=== PATIENT | female | born 2000 | race Caucasian/White ===

== ENCOUNTER 2024-12-30 14:25 | Outpatient (CLI) | payer OTHER, SELFPAY | END 2024-12-30 14:26 | disposition home or self-care (01) | LOC: NFLDREF 01-05 00:24 | PROVIDERS: Visit Provider Physician Assistant | DX: R30.0 Dysuria (principal) | CPT/HCPCS: 87086 ==

== ENCOUNTER 2025-09-20 15:49 | Emergency (ER) | payer OTHER, SELFPAY ==
--- OUTSIDE RECORDS SUMMARY | 2025-09-20 15:52 | XMS_ITS | Encounter Summary ---
Author Organization [facility] Address [address] [place] [address] Care Team Providers Care Cardiac Specialist Name Role Phone Pinky Jacob, P.A.-C. Primary Care Pro vider Reason for Visit * ReasonCommentsMed Refill Encounter Details DateTypeDepartmentCare Team (Latest Contact Info)Kkvcnvgeicn90/12/2025Refill Department of Family Medicine, [facility], in [place], [place] [address] [place] [address] Pinky Jacob MPAS, P.A.-C. [address] [place] [phone] Med Refill Social History Tobacco UseTypesPacks/DayYears UsedDateSmoking Tobacco: NeverSmokeless Tobacco: NeverAlcohol UseStandard Drinks/WeekCommentsNot Currently0 (1 standard drink = 0.6 oz pure alcohol)Humiliation, Afraid, Rape, and Kick questionnaireAnswerDate RecordedWithin the last year, have you been afraid of your partner or ex-partner?No06/10/2024Within the last year, have you been humiliated or emotionally abused in other ways by your partner or ex-partner?No06/10/2024 Within the last year, have you been kicked, hit, slapped, or otherwise physically hurt by your partner or ex-partner?No06/10/2024Within the last year, have you been raped or forced to have any kind of sexual activity by your part ner or ex-partner?No06/10/2024Hunger Vital SignAnswerDate RecordedWithin the past 12 months, you worried that your food would run out before you got the money to buymore.Never true06/16/2025Within the past 12 months, the food you bought just didn't last and you didn't have money to get more.Never true 06/16/2025PRAPARE - TransportationAnswerDate RecordedIn the past 12 months, has lack of transportation kept you from medical appointments or from getting medications?No06/16/2025In the past 12 months, has lack of transportation kept you from meetings, work, or from getting things needed for daily living?No 06/16/2025HC UtilitiesAnswerDate RecordedIn the past 12 months has the [employer] gas, oil, or water [employer] threatened to shut off services in your home?No06/16/2025Postpartum DepressionAnswerDate RecordedPHQ-9 Total Score (max 27)Housing StabilityAnswerDate RecordedWhat is your living situation today?I have a steady place to live06/16/2025EducationAnswerDate RecordedWhat is the highest level of school you have completed or the highest degree you have received?Some college, no [id number] and Gender InformationValueDate RecordedSex Assigned at MkfemYxkkwe31/27/2022 3:50 PM CDT Legal SxcGwqeic58/03/2017 4:28 AM CSTGender CkbeajzcMlzvge43/27/2022 3:50 PM CDT Sexual AcefpfwadrdJxzxxawo04/09/2022 1:02 PM CSTdocumented as of this encounter Plan of Treatment Not on file documented as of this encounter Visit Diagnoses Not on filedocumented in this encounter Additional Health Concerns AssessmentNoted TimePHQ-9 Depression Total Score: 6:38 AM DENTAL LABORATORY WORKER documented as of this encounter Care Teams Team MemberRelationshipSpecialtyStart DateEnd Date Pinky Jacob MPAS, P.A.-C. [address] [place], [place] [address]hernan DIXONJOEL COELLO [phone] PCP - GeneralInternal Jwmxoxlq96/18/22documented as of this encounter
--- OUTSIDE RECORDS SUMMARY | 2025-09-20 15:52 | XMS_ITS | Encounter Summary ---
Author Organization [facility] Address [address] [place] [address] Care Team Providers Care Commissioning Agent Name Role Phone Pinky Jacob P.A.-C. Primary Care Pro vider Reason for Visit * ReasonOnset DateCommentsMed Ilywyv0009/08/2025 Encounter Details DateTypeDepartmentCare Team (Latest Contact Info)Oelcvrtbgfl04/11/2025Refill Department of Family Medicine, [facility], in [place], [place] [address] [place] [phone] Alondra Martell P.A.-C. [address], [place] [address] Med Refill Social History Tobacco UseTypesPacks/DayYears UsedDateSmoking [...] RecordedIn the past 12 months has the [employer], gas, oil, or water [employer] threatened to shut off services in your home?No06/16/2025Postpartum DepressionAnswerDate RecordedPHQ-9 Total Score (max 27)Housing StabilityAnswerDate RecordedWhat is your living situation today?I have a steady place to live06/16/2025EducationAnswerDate RecordedWhat is the highest level of school you have completed or the highest degree you have received?Some college, no [id number] and Gender InformationValueDate RecordedSex Assigned at EazwaJcxgmc90/27/2022 3:50 PM CDT Legal BjkAkwvlp13/03/2017 4:28 AM CSTGender WxajlbtoJawyoh52/27/2022 3:50 PM CDT Sexual YdbsmbmuvnySatsomrq82/09/2022 1:02 PM CSTdocumented as of this encounter Miscellaneous Notes * Telephone Encounter - Delilah Juarez M - 09/12/2025 10:33 AM CST Duplicate-being addressed in another encounter GER IMAGE documented in this encounter Plan of Treatment Not on file documented as of this encounter Visit Diagnoses Not on filedocumented in this encounter Additional Health Concerns AssessmentNoted TimePHQ-9 Depression Total Score: 6:38 AM MANAGER IMAGE documented as of this encounter Care Teams Team MemberRelationshipSpecialtyStart DateEnd Date Pinky Jacob MPAS, P.A.-C. [address] [place] [address] [place] [phone] PCP - GeneralInternal Umvwnpmd06/18/22documented as of this encounter
--- OUTSIDE RECORDS SUMMARY | 2025-09-20 15:52 | XMS_ITS | Clinical Summary ---
Author Organization [facility] Address [address] [place] [address] Care Team Providers Care Laboratory Chemical Assistant Name Role Phone [facility], [facility] [place] [facility] Pro vider Allergies No known active allergies Medications MedicationSigDispense QuantityRefillsLast FilledStart DateEnd DateStatus metFORMIN (GLUCOPHAGE XR) 500 mg Extended-Release tablet Take 500 mg by mouth once daily with evening meal.05/06/2022ctive ubrogepant (UBRELVY ORAL) Take by mouth.Active MAGIC MOUTHWASH 1:1:1 DIPHEN/MAALOX/LIDO (AMB SPECIAL MIX) Indications:Sore throatSwish and swallow 5-10 mL by mouth every 4 hours if needed (sore throat). 240 mL 05/11/2023ctive albuterol HFA (PRO-AIR; VENTOLIN; PROVENTIL) 90 mcg/actuation inhaler Indications:Difficulty breathingInhale 2 Puffs by mouth every 4 hours if needed for Shortness Of Breath. 1 Each 05/11/2023ctive miscellaneous medical supply (Blood Pressure Cuff) misc Indications:Elevated blood pressure reading in office with diagnosis of hypertensionAs directed. 1 Each 06/05/2024ctive metoclopramide HCl (REGLAN) 10 mg tablet Indications:Nausea and vomiting, unspecified vomiting typeTake 1 Tablet (10 mg) by mouth every 6 hours if needed for Nausea/Vomiting. 12 Tablet 06/05/2024ctive ondansetron (ZOFRAN ODT) 4 mg disintegrating tablet Indications:Nausea and vomiting, unspecified vomiting typePlace 1 Tablet (4 mg) on the tongue every 8 hours if needed for Nausea/Vomiting. 12 Tablet 06/05/2024ctive Active Problems ProblemNoted DateDiagnosed DateMorbid iaibxvu5612/21/20220839Pzxljbnmpem15/28/2022 Complex tear of lateral meniscus, current injury, left knee, initial encounter 2Diabetes mellitus, type Migraine ikcygthh10/17/2022 Overview (10/20/2022): Ubrelvy therapy is effective. Obstructive sleep apnea gdhtqufq20/12/2021Generalized anxiety cuyqdykf80/27/2020 Moderate episode of recurrent major depressive abxoqvzu54/27/2020 Family History Medical HistoryRelationNameCommentsNo Known ProblemsFatherNo Known Problems MotherRelationNameStatusCommentsFatherMother Social History Tobacco UseTypesPacks/DayYears UsedDateSmoking Tobacco: NeverSmokeless Tobacco: NeverAlcohol UseStandard Drinks/WeekCommentsNo0 (1 standard drink = 0.6 oz pure alcohol)Interpersonal SafetyAnswerDate RecordedAre you being hit, kicked, pushed or yelled at (see row info)?No06/05/2024Interpersonal Safety Abuse 12 - 18Not on file06/05/2024Interpersonal Safety Ambulatory VulnerabilityNot on file06/05/2024 CommentsNoSex and Gender InformationValueDate RecordedSex Assigned at BirthNot on fileLegal FzhFjvwwe46/19/2013 3:33 PM CSTGender IdentityNot on file Sexual OrientationNot on file Last Filed Vital Signs Vital SignReadingTime TakenCommentsBlood Pjhdacnc233/78006/05/2024 11:15 PM CDT Asbxt235706/05/2024 11:15 PM GZKDuicrmwkmcs35.9 ??C (98.4 ??F)06/05/2024 9:49 PM CDTRespiratory Uxco928206/05/2024 9:49 PM CDTOxygen Nugwhkghlw69%06/05/2024 11:15 PM CDTInhaled Oxygen Concentration--Lmdzdk180 kg (313 lb)06/05/2024 9:49 PM CDT Ambfkg075.6 cm (5' 6)06/05/2024 9:49 PM CDTBody Mass Index50.52006/05/2024 9:49 PM CDT Plan of Treatment Health MaintenanceDue DateLast DoneCommentsTetanus wgbfxvj6707/24/2011Depression screening for age 12+2012HIV for age 15-6507/24/2015HPV series for age 9- 45 (1 - 3-dose series)2015BMI (ht and wt on same day) for age 18+ 2018Hepatitis C screening for age 18-7907/24/2018Hepatitis B series for 19+ (1 of 3 - 19+ 3-dose series)2019Pneumococcal series for age 6-49 (1 of 2 - PCV)2019Pap test for age 21-6507/24/2021OVID-19 vaccine series (2024- season)501/02/2022, 12/01/2020, 10/26/2020Influenza Vaccine (#1)2025 Insurance * Guarantor: Brittany Zimmerman TypeRelation to PatientDate of PhoneBilling AddressWorkers [address] [place] [address] [place] [id number] * Guarantor: Brittany Zimmerman TypeRelation to PatientDate of PhoneBilling AddressWorkers [address] [place] [address] * Guarantor: Brittany Zimmermanunt TypeRelation to PatientDate of PhoneBilling AddressPersonal/[address] [place] [address] * Guarantor: Gideon ISRAEL TypeRelation to PatientDate of BirthPhone Billing AddressPersonal/ArlyakKxrzqn47/02/1980 [address] [address] Advance Directives * Full Code (Latest Code Status on File) Date ActivatedDate InactivatedComments06/25/2022 7:58 AM06/25/2022 5:55 PMQuestion AnswerCommentsCode Status Discussion:* Not Discussed Care Teams Team MemberRelationshipSpecialtyStart DateEnd Date Clinic, [address] [place] [phone] PCP - General06/05/24
--- OUTSIDE RECORDS SUMMARY | 2025-09-20 15:52 | XMS_ITS | Encounter Summary ---
Author Organization [facility] Address [address] [place] [address] Care Team Providers Care Department Store Door Greeter Name Role Phone Pinky Jacob P.A.-C. Primary Care Pro vider Reason for Visit * ReasonOnset DateCommentsAppt Jsycoug2909/20/2025 Encounter Details DateTypeDepartmentCare Team (Latest Contact Info)Ghuqohhonsi59/23/2025Nurse Triage Department of Community Internal Medicine in [place], [place] [address] [place] [phone] Laly Valencia R.N. [address] [place] [address] Appt Request Social History Tobacco UseTypesPacks/DayYears UsedDateSmoking Tobacco: NeverSmokeless [...] RecordedIn the past 12 months has the electric, gas, oil, or water company threatened to shut off services in your home?No06/16/2025Postpartum DepressionAnswerDate RecordedPHQ-9 Total Score (max 27)Housing StabilityAnswerDate RecordedWhat is your living situation today?I have a steady place to live06/16/2025EducationAnswerDate RecordedWhat is the highest level of school you have completed or the highest degree you have received?Some college, no [id number] and Gender InformationValueDate RecordedSex Assigned at LmnxcUxnvoi66/27/2022 3:50 PM CDT Legal RlgFpiyva15/03/2017 4:28 AM CSTGender KzldzzvnAjfbfb89/27/2022 3:50 PM CDT Sexual ZmqhssnmofxPryetvxa48/09/2022 1:02 PM CSTdocumented as of this encounter Miscellaneous Notes * Telephone Encounter - Laly Valencia R.N. - 09/20/2025 2:15 PM CST Chief Complaint / Reason for Call Patient is a 25 y.o. female calling regarding Appt Request. She has a one week headache of head andneck pain. She also has a productive cough and chills and today developed a fever of 103.2. Assessment Concern: pneumonia Present for: 1 week Home cares tried: NSAIDs Calling to request: Recommendation The recommended disposition is See a health care provider within 4 hours. Patient was warm transferred to [facility], Patient Appointment Chief Construction Inspector at the clinic for further assistance., Endpoint: 4 hours. Reason for Visit: Cough, high fever. Video Visit: not discussed , Encouraged patient to call back with any new, worsening, or persistent symptoms., and [place] patient advised to present to their nearest emergency department for further recommendation of their concerns. Due to unavailability of appointments. Reason for Disposition Fever > 103 F (39.4 C) Protocols used: Cough - Acute Sxscrfnxpp-Kblca-OB Care Advice Patient/Caregiver understands and will follow care advice?: Yes, able to teach back Cough - Acute Ozajcluiar-Uqjnd-OD Nurse Laly Bustos Sep 20, 2025 02:17 PM Care Advice SEE HCP (OR PCP TRIAGE) WITHIN 4 HOURS COUGH DROPS FOR COUGH: * Cough drops can help a lot, especially for mild coughs. They reduce coughing by soothing your irritated throat and removing that tickle sensation in the back of the throat. * Cough drops are also easy to carry with you. * Cough drops are available zzoq-esn-tddtuss (OTC). * HOME REMEDY - HARD CANDY: Hard candy works just as well as a medicine-flavored OTC cough drops. FEVER MEDICINES: * For fevers above 101 F (38.3 C) take either acetaminophen or ibuprofen. CALL BACK IF: * You become worse DER AND BACKER documented in this encounter Plan of Treatment Not on file documented as of this encounter Visit Diagnoses Not on filedocumented in this encounter Additional Health Concerns AssessmentNoted TimePHQ-9 Depression Total Score: 6:38 AM ROUNDER AND BACKER documented as of this encounter Care Teams Team MemberRelationshipSpecialtyStart DateEnd Date Pinky Jacob MPAS, P.A.-C. [address] [place] [phone] PCP - GeneralInternal Fywfsdqh19/18/22documented as of this encounter
--- OUTSIDE RECORDS SUMMARY | 2025-09-20 15:52 | XMS_ITS | Encounter Summary ---
Author Organization [facility] Address [address] [place] [address] Care Team Providers Care Child Study Team Director Name Role Phone Pinky Jacob, P.A.-CHans Primary Care Pro vider Reason for Visit * ReasonCommentsMed Refill Encounter Details DateTypeDepartmentCare Team (Latest Contact Info)Ajxiwejwcpn82/01/2025Refill Department of Community Internal Medicine in [place], [place] [address] [place] [phone] Pinky Jacob MPAS, P.A.-C. [address] [place] [phone] Med Refill Social History Tobacco UseTypesPacks/DayYears UsedDateSmoking [...] RecordedIn the past 12 months has the [employer], gas, oil, or water company threatened to shut off services in your home?No06/16/2025Postpartum DepressionAnswerDate RecordedPHQ-9 Total Score (max 27)Housing StabilityAnswerDate RecordedWhat is your living situation today?I have a steady place to live06/16/2025EducationAnswerDate RecordedWhat is the highest level of school you have completed or the highest degree you have received?Some college, no [id number] and Gender InformationValueDate RecordedSex Assigned at VahzxKwoojf40/27/2022 3:50 PM CDT Legal DarDrwqfm81/03/2017 4:28 AM CSTGender GynhgbobWruafd70/27/2022 3:50 PM CDT Sexual GfdfonzobmuEocnwswl54/09/2022 1:02 PM CSTdocumented as of this encounter Plan of Treatment Not on file documented as of this encounter Visit Diagnoses Not on filedocumented in this encounter Additional Health Concerns AssessmentNoted TimePHQ-9 Depression Total Score: 9:24 PM CDT documented as of this encounter Care Teams Team MemberRelationshipSpecialtyStart DateEnd Date Pinky Jacob MPAS, P.A.-C. [address] [place], [place] [address]hern[address] [place]ANCJO[place] [phone] PCP - GeneralInternal Hgkoxglo66/18/22documented as of this encounter
--- OUTSIDE RECORDS SUMMARY | 2025-09-20 15:53 | XMS_ITS | Clinical Summary ---
Author Organization [facility] Address [address] [place] [address] Care Team Providers Care Displayer Name Role Phone Pinky Jacob P.A.-C. Primary Care Pro vider Source Comments Patient records contain information from all sites at [facility]. For routine questions regarding patient records, call [phone] during business hours, M-F 8:00 AM - 5:00 PM Central Time. Record requests for emergency care only can be directed to [phone] at any time.[facility] Allergies No known active allergies Medications * This document contains information received from the source organization and may not represent a complete record from that organization. MedicationSigDispense QuantityRefillsLast FilledStart DateEnd DateStatus ACETAMINOPHEN ORAL Take 100 mg by mouth every 6 (six) hours as needed (pain, headache, fever). 04/24/2012ctive omeprazole (PriLOSEC) [address] capsule Take 20 mg by mouth every morning before breakfast.Active ibuprofen (ADVIL,MOTRIN) 600 mg tablet 06/25/2022ctive DME CPAP Indications:Apnea Sleep ObstructiveDME Order 1 each ctive rimegepant (Nurtec ODT) 75 mg disintegrating tablet Dissolve 1 tablet (75 mg total) in the mouth as needed for migraine. The maximum dose in a 24-hour period is 75 mg. 8 tablet 06/03/2024ctive ondansetron ODT (Zofran-ODT) 4 mg disintegrating tablet Dissolve 4 mg in the mouth every 8 (eight) hours as needed.06/05/2024ctive levonorgestreL-ethinyl estrad 0.1-20 mg-mcg per tablet Take 1 tablet by mouth daily. 84 tablet ctive azelastine (Astelin) 137 mcg/spray (0.1 %) nasal spray Administer 2 sprays into each nostril 2 (two) times a day. 30 mL 121ctive fluticasone propionate (Flonase) 50 mcg/actuation nasal spray SHAKE LIQUID AND USE 2 SPRAYS IN EACH NOSTRIL DAILY 48 g 5Active sertraline (Zoloft) 25 mg tablet Take 1 tablet (25 mg total) by mouth daily. 90 tablet tive metFORMIN XR (Glucophage-XR) 500 mg 24 hr tablet Take 2 tablets (1,000 mg total) by mouth daily with morning meal. 180 tablet tive doxepin (SINEquan) 10 mg capsule TAKE 1 CAPSULE(10 MG) BY MOUTH AT BEDTIME 90 capsule 5Active albuterol 90 mcg/actuation inhaler INHALE 2 PUFFS BY MOUTH EVERY 4 HOURS NEEDED SHORTNESS OF BREATH 54 g tive prazosin (Minipress) 2 mg capsule TAKE 1 CAPSULE(2 MG) BY MOUTH AT BEDTIME 90 capsule 5Active Ventolin HFA 90 mcg/actuation inhaler Inhale 2 puffs every 4 (four) hours as needed for shortness of breath. 8 g Discontinued prazosin (Minipress) 2 mg capsule TAKE 1 CAPSULE(2 MG) BY MOUTH AT BEDTIME 90 capsule /Discontinued Active Problems ProblemNoted DateDiagnosed DatePolycystic Ovary Avoptopw04/19/2025Leukocytosis 06/17/2025Other Prmljdcghemkvp30/19/2025Metabolic Nelsroar01/30/2024 Posttraumatic Stress Disorder Brief06/10/20242826Yrtnzmdf34/05/2024Gastroesophageal Reflux Disease NOS06/02/2024Nicotine Dependence Mraplcgrpwr46/25/2024Morbid Obesity Body Mass Index 50.0-59.9 Adult12/21/20227246Otmniynthxr06/28/2022Diabetes Mellitus Type Hemiplegic Migraine Not Intractable Without Status Jgtkjfqmlfx47/17/2022 Overview (01/11/2024): Ubrelvy therapy is effective. Triptan medications are contraindicated for this patient due to her history of a hemiplegic migraine Apnea Sleep Xgtpvydhpfg56/12/2021 Overview (06/03/2024): Reports compliance with CPAP (May 2024) Anxiety Generalized Ovoevvia57/27/2020Depression Major Recurrent Moderate 08/25/2020 Resolved Problems ProblemNoted DateDiagnosed DateResolved DateBody Mass Index 45.0 To 49.9 Adult /Suicide Mpoupoim09/Urinary Tract Infection Site Not Mgcqfmkno16/3760Jjppbceeil40/12/202409/ Encounters DateTypeDepartmentCare KmdcJrmnpfhepke49/23/2025Nurse Triage [facility] in [place], [place] [address] [place] [phone] Laly Valencia R.N. Appt Fbdpusz1309/09/2025[facility], [facility], in [place], [place] [address] [place] [phone] Pinky Jacob MPAS, P.A.-C. Med Ddmeot2109/08/2025[facility] of [facility], [facility], in [place], [place] [address] [phone] Alondra Martell P.A.-C. Med Enkqbt3608/29/2025[facility] in [place], [place] [address] [place] [phone] Pinky Jacob MPAS, P.A.-C. Med Vcjghp95/27/2025Refill Department of [facility] in [address] [facility] [place] [address] Pinky Jacob MPAS, PBirgit. Med Refillfrom Last 3 Months Immunizations ImmunizationAdministration DatesNext Cnq1oUDX (discontinued)05/21/2013, 10/07/2012,05/18/201205735iCBZ92/23/2013,10/07/2012,05/18/2012DTaP (Daptacel) 01/08/2006DTaP (Infanrix, Tripedia)01/08/2006,11/06/2001,02/27/2001,2000, 2000H1N1 All Forms09/14/2009,08/17/2009HepA Pediatric/Sqrqdibpyu37/03/2014 ,05/18/2012Hib-HepB11/06/2001,2000,2000IPV01/08/2006,02/27/2001, 2000,2000Influenza, Injectable, Ukezlzuybgvx69/26/2016Influenza, Seasonal, Kytijoccnp58/01/2009,08/13/2007Influenza, Bvjepwoqquu29/06/2011, 07/12/2010MCV4 (Menactra)(Discontinued)04/29/2017,05/18/2012MMR01/08/2006, 07/30/20015510YEJ7170/24/0399LXW0 (discontinued)11/06/2001,02/27/2001,2000, 09/15/20005468DWWG-QUD-9 (COVID-19) - MODERNA(Discontinued)10/04/2021,12/01/2020, 10/26/2020Tdap12/20/2022,05/18/2012VAR07/12/2008,07/30/2001influenza LAIV (Nasal) (2 years through 49 years)07/28/2015,09/03/2013influenza vaccine quad (FLUZONE/FLUARIX) (6 months and older)(PF)2016,07/28/2015,09/05/2014, 09/03/2013,09/03/2011,07/12/2010,09/14/2009,08/17/2009,06/29/2009,08/13/2007 Family History Medical HistoryRelationNameCommentsADD / ADHDBrother 1javianAsthmaBrother 1 javianADD / ADHDBrother 2noahADD / ADHDBrother 3noahAsthmaBrother 3noahAsthma Father's Brother 1aidanAsthmaFather's Brother 2aidanAllergiesGrandfathermaternal ArthritisMaternal GrandfathergeraldAsthmaMaternal GrandfathergeraldDiabetes Maternal GrandfathergeraldHyperlipidemia (high cholesterol)Maternal Grandfather geraldObesityMaternal GrandfathergeraldAnxiety disorderMotherjenniferAnxiety/ depressionMotherjenniferAsthmaMotherjenniferDepressionMotherjenniferMigraines MotherjenniferObesityMotherjenniferPolycystic ovary syndromeMotherjennifer Thyroid diseaseMotherjennifercurrently receiving treatmentRelationNameStatus CommentsBrother 1javianAliveBrother 2noahAliveBrother 3noahAliveFather's Brother 1aidanAliveFather's Brother 2aidanAliveGrandfathermaternalMaternal Grandfather geraldAliveMotherjenniferAlive Social History Tobacco UseTypesPacks/DayYears UsedDateSmoking Tobacco: NeverSmokeless [...] otherwise physically hurt by your partner or ex-partner?06/10/2024Within the last year, have you been raped [...] highest degree you have received?Some college, no eewovk131CommentsUnknownSex and Gender InformationValueDate RecordedSex Assigned at XbaogJibkmv20/27/2022 3:50 PM CDT Legal JfwBebuzm78/03/2017 4:28 AM CSTGender HrwsbmdhCqbqvl06/27/2022 3:50 PM CDT Sexual TofrajrkdxnRgmxflge04/09/2022 1:02 PM JUNIOR SYSTEMS ADMINISTRATOR Last Filed Vital Signs Vital SignReadingTime TakenCommentsBlood Ozfgxyzf138/7009 10:51 AM CDT Nrpsh820706/17/2025 10:51 AM RAKClwseaqxrlz82 ??C (96.8 ??F)07/15/2024 3:31 PM CDT Respiratory Dnzw5918 3:31 PM CDTOxygen Nzsxilfopk29%06/11/2024 6:40 AM CDTInhaled Oxygen Concentration--Lxbtcp106 kg (325 lb 9.9 oz)06/17/2025 10:51 AM LPQHdnwin873 cm (5' 6.54)07/14/2024 2:26 PM CDTBody Mass Index51.7107/14/2024 2:26 PM CDT Plan of Treatment Health MaintenanceDue DateLast DoneCommentsDiabetic Eye Exam2000HIV Odbzlgqqy2000Tobacco Cessation gsdevjjrnn18/08/202309/2Diabetic Office Visit with Foot Exam/3COVID-19 Vaccine ( season)/02/2022, 12/01/2020, 10/26/2020Influenza Vaccine (#1) , 2016, 07/28/2015, Additional history exists Hemoglobin A1C/, 06/16/2024, 04/29/2023, Additional history existsCervical/Vaginal Cancer Zyiowdqfn57/3Depression Monitoring (PHQ-9)/5Creatinine Level (Kidney Function Test)06/13/2026 06/13/2025, 06/09/2024, 06/05/2024, Additional history existsLipid (Cholesterol) Aooyywywe81, 06/16/2024, 10/11/2022, Additional history exists Urine Eqytbsm85/, 06/16/2024Office Visit for Blood Pressure Check / Re-checkVisit: Chronic Disease, age 18+06/17/2026 06/17/2025DTaP,Tdap,and Td Vaccines (8 - Td or Tdap), 05/18/2012, 01/08/2006, Additional history existsHepatitis B VaccinesCompleted 11/06/2001, 2000, 2000IPV LmsnakgpBdzuzzqpv82/12/2006, 02/27/2001, 2000, Additional history existsVaricella PeqzvuquTaeavxthk82/14/2008, 07/30/2001HPV HhrhmmlwIfkzscdrx52/23/2013, 05/21/2013, 10/07/2012, Additional history existsHepatitis C YxthdxetiIlwgfksry53/13/2023Pneumococcal vaccine (0-49 years)Rxhlusiil83/24/2023, 11/06/2001, 02/27/2001, Additional history exists Chlamydia and Gonorrhea RrpoxredhDldcnchhneyt14/30/2024Depression Monitoring (PHQ-9 for quality tracking)Blzbqugmu39/11/2025 Procedures Procedure NamePriorityDate/TimeAssociated DiagnosisCommentsHEMOGLOBIN A1C, B Bgqncga2206/13/2025 3:15 PM CDT Diabetes Mellitus Type 2 (HCC) LIPID PANEL, XRyfznqc39/15/2025 3:15 PM CDT Diabetes Mellitus Type 2 (HCC) BASIC METABOLIC PANEL, S/MMhkitdk27/15/2025 3:15 PM CDT Diabetes Mellitus Type 2 (HCC) ALBUMIN, RANDOM, QKjizfiy69/15/2025 3:09 PM CDT Diabetes Mellitus Type 2 (HCC) CHLAMYDIA/GONORRHOEAE AMPLIFIED VFFSixtzvf85/30/2024 2:00 PM CDT Abnormal Uterine And Vaginal Bleeding Unspecified Screening For Venereal Disease Pain Pelvic Female THINPREP SCREEN HPV LBRTETQgojpvs11/24/2023 4:53 PM CDT Pap Smear Examination HCV AB SCRN W/REFLEX TO HCV PCR, AWogyjsk35/13/2023 3:48 PM JUNIOR SYSTEMS ADMINISTRATOR Diabetes Mellitus Type 2 (HCC) from Last 3 Months or Most Recently Relevant to Health Maintenance Results * (ABNORMAL) Lipid Panel (06/13/2025 3:15 PM CDT)ComponentValueRef RangeTest MethodAnalysis TimePerformed AtPathologist JffxdfcesZdjuyjgrvctxe819pj/dL 06/13/2025 6:05 PM CDTOWATComment: ----REFERENCE VALUE---- Normal: <150 mg/dL Borderline High: 150-199 mg/dL High: 200-499 mg/dL Very High: > or =500 mg/dL Cholesterol, Sxwop126jy/dL06/13/2025 6:05 PM CDTOWATComment: ----REFERENCE VALUE---- Desirable: < 200 mg/dL Borderline High: 200 - 239 mg/dL High: > or = 240 mg/dL Cholesterol, LDL, Izbngkmwfg551my/dL06/13/2025 6:05 PM CDTOWATComment: ----REFERENCE VALUE---- Desirable: <100 mg/dL Above Desirable: 100-129 mg/dL Borderline High: 130-159 mg/dL High: 160-189 mg/dL Very High: >=190 mg/dL ----ADDITIONAL INFORMATION---- LDL cholesterol calculated using the Puckett/NIH equation. Cholesterol, HDL34(L)>=50 mg/dL06/13/2025 6:05 PM CDTOWATCholesterol, Non-HDL, Fecrnjufzv312lo/dL06/13/2025 6:05 PM CDTOWATComment: ----REFERENCE VALUE---- Desirable: <130 mg/dL Above Desirable: 130-159 mg/dL Borderline High: 160-189 mg/dL High: 190-219 mg/dL Very High: > or =220 mg/dL Fasting (8 HR or more)Yes06/13/2025 3:15 PM CDTOWATSpecimen (Source)Anatomical Location / LateralityCollection Method / VolumeCollection TimeReceived TimeBlood (Blood, Venous)06/13/2025 3:15 PM CDT06/13/2025 5:43 PM CDT Narrative Authorizing ProviderResult TypeResult StatusDesiree Deanovic MPAS, P.A.-C.LAB BLOOD ADD-ONFinal ResultPerforming OrganizationAddressCity/State/ZIP CodePhone Number [facility] [address] [place] [address], [place] OW[facility] in [place] [address] [place] [address] * (ABNORMAL) Hemoglobin A1c (06/13/2025 3:15 PM CDT)ComponentValueRef RangeTest MethodAnalysis TimePerformed AtPathologist SignatureHemoglobin A1c, B7.7(H)4.2 - 5.6 %06/13/2025 6:08 PM CDTOWATComment: Hemoglobin A1c values greater than or equal to 6.5 percent are diagnostic for diabetes mellitus. ??Diagnosis should be confirmed by repeat testing. ??In diabetic patients, HbA1c goals should be discussed with healthcare provider. Specimen (Source)Anatomical Location / LateralityCollection Method / Volume Collection TimeReceived TimeBlood (Blood, Venous)06/13/2025 3:15 PM CDT 06/13/2025 5:43 PM CDT Narrative Authorizing ProviderResult TypeResult StatusDesiree Cecil BENAVIDES, P.A.-C.LAB BLOOD ADD-ONFinal ResultPerforming OrganizationAddressCity/State/ZIP CodePhone Number [facility] [address], [place] [address], [facility] OWAT [facility] in [place] [address], [place] [address] * (ABNORMAL) Basic Metabolic Panel (06/13/2025 3:15 PM CDT)ComponentValueRef RangeTest MethodAnalysis TimePerformed AtPathologist SignaturePotassium, P4.3 3.6 - 5.2 mmol/L06/13/2025 6:05 PM CDTOWATSodium, G634177 - 145 mmol/L 06/13/2025 6:05 PM CDTOWATChloride, E88286 - 107 mmol/L06/13/2025 6:05 PM CDT OWATBicarbonate, P2522 - 29 mmol/L06/13/2025 6:05 PM CDTOWATAnion Gap, P107 - 1509 6:05 PM CDTOWATBUN (Blood Urea Nitrogen), P96 - 21 mg/dL 06/13/2025 6:05 PM CDTOWATCreatinine0.49(L)0.59 - 1.04 mg/dL06/13/2025 6:05 PM CDTOWATEstimated GFR (eGFR)>90>=60 mL/min/BSA06/13/2025 6:05 PM CDTOWAT Comment: Estimated GFR calculated using the 2020 CKD_EPI creatinine equation. Calcium, Total, P9.48.6 - 10.0 mg/dL06/13/2025 6:05 PM CDTOWATGlucose, P146(H)70 - 140 mg/dL06/13/2025 6:05 PM CDTOWATSpecimen (Source)Anatomical Location / LateralityCollection Method / VolumeCollection TimeReceived TimeBlood (Blood, Venous)06/13/2025 3:15 PM CDT06/13/2025 5:43 PM CDT Narrative Authorizing ProviderResult TypeResult StatusDesiree Cecil BENAVIDES, P.A.-C.LAB BLOOD ADD-ONFinal ResultPerforming OrganizationAddressCity/State/ZIP CodePhone Number [facility] [address] [place] [phone], [facility] in [place] [address] [place] [address] * Albumin, Random, Urine (06/13/2025 3:09 PM CDT)ComponentValueRef RangeTest MethodAnalysis TimePerformed AtPathologist SignatureMicroalbumin<12.0mg/L 06/13/2025 6:07 PM CDTOWATComment:If clinically indicated, contact the lab for additional testing.Dgshlexabo053eh/dL06/13/2025 6:07 PM CDTOWAT Albumin/Creatinine Ratio<10<25 mg/g006/13/2025 6:07 PM CDTOWATComment: This ratio may not correspond with the reference range because one or both of the values used to calculate the ratio was above or below the quantification limits. Specimen (Source)Anatomical Location / LateralityCollection Method / Volume Collection TimeReceived TimeUrine (Urine, Midstream)06/13/2025 3:09 PM CDT 06/13/2025 5:43 PM CDT Narrative Authorizing ProviderResult TypeResult StatusDesirehernan BENAVIDES, P.A.-C.LAB URINE ORDERABLESFinal ResultPerforming OrganizationAddressCity/State/ZIP Code Phone Number [facility] [address] [place] [phone], [facility] in [place] [address] [place] [address] * Chlamydia / Gonorrhoeae Amplified RNA (06/28/2024 2:00 PM CDT)ComponentValue Ref RangeTest MethodAnalysis TimePerformed AtPathologist SignatureSourceUrine, Urine, First Fhcikm1606/28/2024 11:32 PM CDTMKTOChlamydia trachomatis amplified JYPVuhwrtixKotwibce33/30/2024 11:32 PM CDTMKTOSourceUrine, Urine, First Voided 06/28/2024 11:32 PM CDTMKTONeisseria gonorrhoeae amplified RNANegativeNegative 06/28/2024 11:32 PM CDTMKTOSpecimen (Source)Anatomical Location / Laterality Collection Method / VolumeCollection TimeReceived TimeUrine (Urine, First Voided)06/28/2024 2:00 PM CDT06/28/2024 7:17 PM CDT Narrative Authorizing ProviderResult TypeResult StatusKiersnacho Hurt P.A.-C., P.A., M.S.LAB MICROBIOLOGY - GENERAL ORDERABLESFinal ResultPerforming Organization AddressCity/State/ZIP CodePhone Number [facility] [address] [place] [address], [facility] [place] [address] * ThinPrep Screen HPV Reflex (12/20/2022 4:53 PM CDT)ComponentValueRef RangeTest MethodAnalysis TimePerformed AtPathologist SignatureCase DycfbcKH-27-3604 12/26/2022 3:55 PM CDTHKCYReport electronically signed byMAE García(ASCP) I verify that I have examined all relevant slides/materials for the specimen(s) and rendered or confirmed the diagnosis. 12/26/2022 3:55 PM CDTHKCYGross DescriptionReceived specimen in a ThinPrep vial. 12/26/2022 3:55 PM CDTHKCYPap Test SourceCervical/Xfavvasjpvyj14/30/2023 3:55 PM CDTHKCYClinical Vlbemwjuzashxa08/30/2023 3:55 PM CDTHKCYMenstrual Status(LMP, PM, )Well Woman12/26/2022 3:55 PM CDTHKCYHormone Therapy/Contraceptives OCP12/26/2022 3:55 PM CDTHKCYInterpretationCervical/Endocervical ??(ThinPrep): Satisfactory for Evaluation Endocervical/transformation zone components absent Negative for Intraepithelial Lesion or Malignancy 12/26/2022 3:55 PM CDTHKCYSpecimen (Source)Anatomical Location / Laterality Collection Method / VolumeCollection TimeReceived TimeThin Prep Vial (Cervix/Endocervix/Vagina)12/20/2022 4:53 PM CDT12/23/2022 7:33 AM CDT Narrative Authorizing ProviderResult TypeResult StatusDesireJamie Macedo.A.-C.LAB PAP PATHDX ORDERABLESFinal ResultPerforming OrganizationAddressCity/State/ZIP CodePhone Number [facility] [address] [place] [address], [facility] [address] [place] [address] * HCV Ab Scrn w/Reflex to HCV PCR, Serum (10/11/2022 3:48 PM JUNIOR SYSTEMS ADMINISTRATOR)ComponentValue Ref RangeTest MethodAnalysis TimePerformed AtPathologist SignatureHCV Ab Screen, XMpmhxgqzJoqfurnx80/14/2023 11:27 AM CSTSDSCComment:Cajqqe-te-vioemr ratio is <1.00.Specimen (Source)Anatomical Location / LateralityCollection Method / VolumeCollection TimeReceived TimeBlood (Blood, Venous)10/11/2022 3:48 PM CST10/12/2022 8:57 AM JUNIOR SYSTEMS ADMINISTRATOR Narrative Authorizing ProviderResult TypeResult StatusDesirehernan BENAVIDES, P.A.-C.LAB MICROBIOLOGY - BLOOD ORDERABLESFinal ResultPerforming OrganizationAddress City/State/ZIP CodePhone Number [facility] [address] [place] [address] [facility] [address] [place] [address] from Last 3 Months or Most Recently Relevant to Health Maintenance Insurance * Guarantor: Last Zimmerman TypeRelation to PatientDate of BirthPhone Billing AddressPersonal/Owcur[address] [place] [address] * Guarantor: Iram Chaudhry TypeRelation to PatientDate of BirthPhone Billing AddressPersonal/QmabveIcjuzx31/02/1980 [address] [place] [address] * Guarantor: Thor Zimmermanccfrank TypeRelation to PatientDate of BirthPhone Billing AddressWorkers [address] [place] [address] Advance Directives For more information, please contact: [phone] * Full Code (Latest Code Status on File) Date ActivatedDate InactivatedComments06/10/2024 5:03 PM06/11/2024 8:16 PMQuestion AnswerCommentsFull Code:* Discussed Care Teams Team MemberRelationshipSpecialtyStart DateEnd Date Pinky Jacob MPAS, P.A.-C. [address] [place] [address] [place] [id number] PCP - GeneralInternal Ynpxxxpr90/18/22
[2025-09-20 15:55] VITALS: BP 155/95; PULSE 134; RESP 28; TEMP 39; O2SAT 99; BMI 50.9
--- NOTE | 2025-09-20 16:10 | ED.GENADULT ---
HPI - General Adult General Chief complaint: Fever Stated complaint: 103.5 temp, cough, headaches Time Seen by Provider: 09/20/25 16:02 History of Present Illness HPI narrative: This 25-year-old female comes in reporting fever and cough that began within the last 24 hours. She reports lots of mucus. She does not report a sore throat or shortness of breath. She has not taken any Tylenol or ibuprofen since early today. Related Data Home Medications ?Medication ?Instructions ?Recorded ?Confirmed albuterol sulfate 90 mcg/actuation 2 puff inhalation Q4H PRN dyspnea 10/09/23 09/20/25 aerosol inhaler (Ventolin HFA) desogestrel-e.estradiol 0.15 1 tab PO DAILY 10/09/23 05/01/25 mg-0.02 mg(21)/e.estrad 0.01 mg(5) tablet (Viorele (28)) doxepin 10 mg capsule 10 mg PO QPM 10/09/23 09/20/25 fluticasone propionate 50 2 spray intranasal DAILY 10/09/23 05/01/25 mcg/actuation nasal spray,suspension metformin 500 mg tablet,extended 500 mg PO DAILY 10/09/23 09/20/25 release 24 hr prazosin 2 mg capsule 2 mg PO QPM 12/30/24 09/20/25 sertraline 25 mg tablet 25 mg PO DAILY 09/20/25 09/20/25 Allergies Allergy/AdvReac Type Severity Reaction Status Date / Time No Known Drug Allergies Allergy Verified 05/01/25 10:07 Review of Systems Status of ROS: Reports: 10 or more systems reviewed and unremarkable except as noted in History and below Narrative: Constitutional: No weight gain or loss. Eyes: No discharge. No vision changes. HENT: No sore throat, no ear pain. Cardiovascular: No chest pain, no palpitations. Respiratory: No shortness of breath, no wheezes. She reports a productive cough. Gastrointestinal: No abdominal pain, no vomiting, no diarrhea. Genitourinary: No dysuria, no hematuria. Musculoskeletal: Normal range of motion. Skin: No rashes, no pruritis. Neurological: No dizziness, weakness, sensory change, speech change. Endo/Heme/Allergies: No bruising or bleeding. No polydipsia. Pysch: no suicidality, no anxiety, no insomnia. All other systems reviewed and are negative. [facility] Medical History (Updated 09/20/25 @ 17:32 by Bo Herron MD) COVID ?U07.1 - COVID-19 (ICD-10) Exam Narrative: Exam Narrative: Constitutional: Well-developed, well-nourished, no acute distress. HEENT: Normocephalic, atraumatic. Neck: Normal range of motion. Nontender. Supple. Heart: Regular. No murmurs. Normal rate. Intact distal pulses. Lungs: Clear to auscultation. No chest discomfort. No wheezes, rhonchi, or rales. Abdomen: Normal bowel sounds. Nontender. No rebound tenderness. Genitalia: Deferred. Back: No midline tenderness. Normal range of motion. Extremities: Normal range of motion. No injury. Skin: Intact. No rash. Warm. No erythema or pallor. Neurologic: No altered sensation. No weakness. Alert and oriented. Psychiatric: No suicidality. No anxiety or depression. No insomnia. Nursing notes and vitals signs are reviewed. Const: Vital Signs, click to edit/add: Vital Signs - 24 hr 09/20/25 15:55 09/20/25 16:50 09/20/25 17:01 Temperature 102.2 F H Pulse Rate 126 H 120 H Pulse Rate [Pulse Oximeter] 134 H Respiratory Rate 28 H Blood Pressure 130/79 Blood Pressure [Ri ght Upper Arm] 155/95 H Pulse Oximetry 99 98 99 Oxygen Delivery Me thod Room Air 09/20/25 17:02 Temperature Pulse Rate 112 H Pulse Rate [Pulse Oximeter] Respiratory Rate Blood Pressure Blood Pressure [Ri ght Upper Arm] Pulse Oximetry 97 Oxygen Delivery Me thod Course Vital Signs Vital signs: Initial Vital Signs Temperature 102.2 F H 09/20/25 15:55 Temperature Source Temporal Artery Scan 09/20/25 15:55 Pulse Rate 134 H 09/20/25 15:55 Respiratory Rate 28 H 09/20/25 15:55 Blood Pressure 155/95 H 09/20/25 15:55 Blood Pressure Mean 115 H 09/20/25 15:55 Blood Pressure Position Sitting 09/20/25 15:55 Pulse Oximetry 99 09/20/25 15:55 Oxygen Delivery Method Room Air 09/20/25 15:55 Vital Signs Temperature 102.2 F H 09/20/25 15:55 Pulse Rate 134 H 09/20/25 15:55 Respiratory Rate 28 H 09/20/25 15:55 Blood Pressure 155/95 H 09/20/25 15:55 Pulse Oximetry 99 09/20/25 15:55 Oxygen Delivery Method Room Air 09/20/25 15:55 Temperature 102.2 F H 09/20/25 15:55 Pulse Rate 112 H 09/20/25 17:02 Respiratory Rate 28 H 09/20/25 15:55 Blood Pressure 130/79 09/20/25 17:01 Pulse Oximetry 97 09/20/25 17:02 Oxygen Delivery Method Room Air 09/20/25 15:55 Medications Administered Medications: Discontinued Medications Generic Name Dose Route Start Last Admin Trade Name Freq PRN Reason Stop Dose Admin Acetaminophen 1,000 mg 09/20/25 16:09 09/20/25 16:23 Acetaminophen 500 Mg Tablet PO 09/20/25 16:10 1,000 mg ONCE ONE Administration Dexamethasone 10 mg 09/20/25 16:15 09/20/25 16:23 Dexamethasone 10 Mg/Ml Pf PO 09/20/25 16:16 10 mg ONCE ONE Administration Medical Decision Making MDM Narrative Medical decision making narrative: This 25-year-old comes in with fever report of cough. These symptoms started within the last 24 hours. Nasal pharyngeal swab is obtained and returns negative for viruses tested. The patient continues to have normal vital signs. She did arrive with a fever at around 102? F. She has not taken any medicines to treat this. She was given Tylenol 1000 mg here today. She also received an oral dose of dexamethasone 10 mg. Most likely this is a viral upper respiratory infection. I encouraged use of [id number]-dop-[id number] medicines as needed and directed for symptomatic relief. Lab Data Labs: Lab Results 09/20/25 Range/Units 16:00 SARS-CoV-2 (PCR) Negative SARS-CoV-2 (Negative) Influenza Type A (PCR) Negative PCR FLU A (Negative) Influenza Type B (PCR) Negative PCR FLU B (Negative) RSV (PCR) Negative PCR RSV (Negative) Discharge Plan Discharge Clinical Impression: Acute upper respiratory infection Patient Disposition: Home, Self-Care Condition: Stable Additional Instructions: Use [id number] medicines as needed and directed for symptomatic relief. Follow up with MD return if symptoms are worsening. Prescriptions: No Action fluticasone propionate 50 mcg/actuation spray,suspension 2 spray intranasal DAILY metformin 500 mg tablet extended release 24 hr 500 mg PO DAILY albuterol sulfate [Ventolin HFA] 90 mcg/actuation HFA aerosol inhaler 2 puff inhalation Q4H PRN (Reason: dyspnea) desog-e.estradiol/e.estradiol [Viorele (28)] 0.15-0.02 mgx21 /0.01 mg x 5 tablet 1 tab PO DAILY doxepin 10 mg capsule 10 mg PO QPM prazosin 2 mg capsule 2 mg PO QPM sertraline 25 mg tablet 25 mg PO DAILY Follow Up/Referrals: Provider,Not a Local [Primary Care Provider, Family Practice] Stand Alone Forms: [email or web address] Info Instructions
[2025-09-20] MEDS: ACETAMINOPHEN 500 MG TABLET 1000 MG PO (16:23)
[2025-09-20] MEDS: DEXAMETHASONE 10 MG/ML PF PO (16:23)
[2025-09-20 16:50] VITALS: PULSE 126; O2SAT 98
[2025-09-20 17:01] VITALS: BP 130/79; PULSE 120; O2SAT 99
[2025-09-20 17:02] VITALS: PULSE 112; O2SAT 97
[2025-09-20 17:21] VITALS: PULSE 119; O2SAT 97
[2025-09-20 17:21] LABS: PCR FLU A Negative PCR FLU A (Negative); PCR FLU B Negative PCR FLU B (Negative); PCR RSV Negative PCR RSV (Negative); SARS PCR* Negative SARS-CoV-2 (Negative)
[2025-09-20 17:31] VITALS: BP 133/83
== END 2025-09-20 17:42 | disposition home or self-care (01) ==
PROVIDERS: Emergency Provider Emergency Medicine Emergency Medical Services
DX: J06.9 Acute upper respiratory infection, unspecified (principal)
CPT/HCPCS: 87631; 99283; 99284; A9270; J1100